=== PATIENT | female | born 1945 | race Caucasian/White ===

== ENCOUNTER 2022-12-28 16:33 | Emergency (ER) | payer MEDICARE, OTHER ==
[2022-12-28 16:52] LABS: HEMATOCRIT 33.6 % (34.3-46.0); HEMOGLOBIN 11.6 g/dL (11.2-15.5); MEAN CORPUSCULAR HGB CONC 34.5 g/dL (31.6-35.5); MEAN CORPUSCULAR VOLUME 92.6 fL (81.4-99.0); RED BLOOD CELL COUNT 3.63 M/uL (3.77-5.24); WHITE BLOOD CELL COUNT,WBC 8.5 K/uL (3.2-11.0)
[2022-12-28] MEDS: Aspirin 81 MG Tab.Chew PO ONE (16:58)
[2022-12-28] MEDS: Sodium Chloride 0.9% 1,000 ML IV SCH (16:58)
[2022-12-28 16:59] LABS: BASE EXCESS VENOUS -1.5 mm/L; CARBOXYHEMOGLOBIN 2.8 % (0.0-1.6); METHEMOGLOBIN 0.6 %; O2 SATURATION VENOUS 99.3; OXYHEMOGLOBIN 95.9 %; PCO2 VENOUS 29.7 mm/Hg; PH,VENOUS 7.463 (7.350-7.450); PO2 VENOUS 140 mm/Hg; TOTAL HEMOGLOBIN 11.9 g/dL (12.0-16.0)
[2022-12-28] MEDS: Diltiazem 25 MG/5 ML SDV IVPUSH ONE ×2 (16:59→19:15)
[2022-12-28 17:18] LABS: PROTHROMBIN TIME 9.9 sec (9.2-10.6)
[2022-12-28 17:29] LABS: A/G RATIO 1.1 (1.2-2.2); ALANINE AMINOTRANSFERASE,ALT 20 U/L (12-78); ALBUMIN 3.8 g/dL (3.4-5.0); ALKALINE PHOSPHATASE 75 U/L (46-116); ASPARTATE AMNIOTRANSFERASE,AST 16 U/L (15-37); BILIRUBIN TOTAL 0.3 mg/dL (0.2-1.0); BLOOD UREA NITROGEN,BUN 19 mg/dL (7-18); CALCIUM 8.9 mg/dL (8.5-10.1); CARBON DIOXIDE,CO2 22 mmol/L (21-32); CHLORIDE,CL 103 mmol/L (100-108); CREATININE 0.9 mg/dL (0.6-1.0); EST CRCL DRUG DOSING (CG) 46.64 mL/min; ESTIMATED GFR 67 mL/min (>60); GLUCOSE RANDOM 137 mg/dL (74-106); POTASSIUM,K 3.6 mmol/L (3.6-5.2); PRO B-TYPE NATRIUR PEPT,BNPPRO 546 pg/mL (5-450); PROTEIN TOTAL,TP 7.3 g/dL (6.4-8.2); SODIUM,NA 137 mmol/L (140-148); TROPONIN I HIGH SENSITIVITY 7.7 pg/mL (<=60.3)
[2022-12-28 17:31] LABS: ANION GAP 15.6 mmol/L (5.0-14.0)
[2022-12-28 18:30] LABS: APPEARANCE,URINE CLEAR (CLEAR); BILIRUBIN,URINE NEGATIVE (NEGATIVE); COLOR,URINE YELLOW (YELLOW); GLUCOSE,URINE NEGATIVE (NEGATIVE); KETONES,URINE NEGATIVE (NEGATIVE); LEUKOCYTE ESTERASE,URINE NEGATIVE (NEGATIVE); NITRITE,URINE NEGATIVE (NEGATIVE); OCCULT BLOOD,URINE NEGATIVE (NEGATIVE); PH,URINE 6.5 (5.0-8.0); PROTEIN,URINE TRACE mg/dL (NEGATIVE); UROBILINOGEN,URINE 0.2 EU/dL (0.2-1.0)
[2022-12-28 18:35] LABS: AMORPHOUS SEDIMENT,URINE NOT SEEN; BACTERIA,URINE RARE; EPITHELIAL CELLS,URINE FEW; MUCUS,URINE FEW; RBC,URINE 0-5 (0-5); WBC,URINE 0-5 (0-5)
[2022-12-28] MEDS: Iopamidol 755 Mg/ML 100 ML Bottle IV SCH (18:43)
[2022-12-28] MEDS: Sodium Chloride 0.9% 100 ML IV SCH (18:43)
[2022-12-28] MEDS: Metoprolol Tartrate 50 MG Tab PO ONE (19:15)
[2022-12-28] MEDS: Rivaroxaban 10 MG Tab PO ONE (19:34)
== END 2022-12-28 21:00 | disposition home or self-care (01) ==
LOC: JP.ED 16:33
DX: I48.20 Chronic atrial fibrillation, unspecified (principal); I10 Essential (primary) hypertension; I25.10 Atherosclerotic heart disease of native coronary artery without angina pectoris; J45.909 Unspecified asthma, uncomplicated; M19.90 Unspecified osteoarthritis, unspecified site; E66.9 Obesity, unspecified; Z68.33 Body mass index [BMI] 33.0-33.9, adult; Z88.8 Allergy status to other drugs, medicaments and biological substances; Z79.82 Long term (current) use of aspirin; Z79.899 Other long term (current) drug therapy; Z79.01 Long term (current) use of anticoagulants
CPT/HCPCS: 36415; 71045; 71275; 80053; 81001; 82803; 83605; 83880; 84484; 85027; 85379; 85610; 93005; 93010; 96374; 96376; 99284; 99285; A9270; J3490; J7030; Q9967